=== PATIENT | male | born 1945 | race Caucasian/White ===

== ENCOUNTER 2017-12-29 21:48 | Observation (INO) ==
--- NOTE | 2017-12-29 23:46 | Emergency Department Note ---
Disposition Clinical Impression: Vertigo, Hyperglycemia, Elevated lactic acid level Disposition: Admitted As Inpatient Condition: Fair Time of Disposition: 03:32 Dizziness HPI - General Chief Complaint: ED General Medical Stated Complaint: high blood sugar Time Seen by Provider: 12/29/17 23:00 Source: patient (;11) Limitations: no limitations Nursing Notes Reviewed: Yes Vital Signs Reviewed: Yes - History of Present Illness HPI Narrative: Patient reports that he has had a previous cerebellar CVA and although this was 7 years ago he gets vertigo from it frequently and is treated. He reports that he has had extra spinning in the last 4 days. Oftentimes happening with position change especially lying down in bed. He reports that he had not checked his blood sugar in several days and checked it at 8 PM and it was 439. He reports past medical history of hypertension and he is on clopidogrel but he has never had high cholesterol or an IA. He denies any headache or new injuries. He reports no vision changes or weakness. He denies any arm or leg or focal symptoms. No speech deficits. No falls. Denies chest pain, palpitations, shortness of breath, nausea, vomiting. Pt Subjective Complaint: dizziness, lightheadedness, difficulty walking ( Frequently ataxic since CVA 7 years ago) Onset (ago): day(s) Timing: gradual onset, waxing/waning Description: sense of movement, "room spinning", off-balance History of similar episodes: Yes History of trauma: No Severity: moderate Improves with: remaining still - Related Data Home Medications Medication Instructions Recorded Confirmed Atenolol 100 mg PO DAILY 12/29/17 12/29/17 Clopidogrel [Plavix] 75 mg PO DAILY 12/29/17 12/29/17 Enalapril Maleate [Vasotec] 20 mg PO BID 12/29/17 12/29/17 Finasteride [Proscar] 5 mg PO DAILY 12/29/17 12/29/17 Metformin HCl [Metformin HCl ER] 1,000 mg PO BID 12/29/17 12/29/17 Ondansetron HCl [Zofran] 4 mg PO BID PRN 12/29/17 12/29/17 Simvastatin [Zocor] 20 mg PO HS 12/29/17 12/29/17 Terazosin [Hytrin] 5 mg PO DAILY 12/29/17 12/29/17 glipiZIDE [Glipizide] 10 mg PO BID 12/29/17 12/29/17 Allergies Allergy/AdvReac Type Severity Reaction Status Date / Time No Known Allergies Allergy Verified 12/30/17 07:00 All systems ED: reviewed and negative except as stated. Review of Systems: As Per HPI Past Medical History - Past Medical History Medical history: Reports: CVA, kidney stones - Social History Smoking Status: Never smoker Alcohol use: Reports: none Drug use: Reports: none Physical Exam Constitutional: Patient is oriented to person, place, and time. Skin color is pink. Appears well hydrated, body habitus normal . Non toxic appearing. Head: Normocephalic and atraumatic. External ear exam normal Nose: Nose normal. Mouth/Throat: Uvula is midline, oropharynx is clear and moist and mucous membranes are normal. Eyes: Conjunctivae nl, extraocular motions and lids are normal. Pupils are equal , round, and reactive to light. Neck: Normal range of motion and phonation normal. Neck supple. Cardiovascular: Normal rate, regular rhythm, normal heart sounds. Pulmonary/Chest: No Respiratory distress. Respiratory Effort normal and breath sounds clear. Abdominal: Soft. Normal appearance and bowel sounds are normal. no tenderness, no masses, no guarding, no rebound Musculoskeletal: Good distal pulses. Soft compartments. Brisk cap refill. Extremities: Normal range of motion.Intact peripheral pulses. 1+ Edema. Extremity skin color nl, no calf tenderness or palpable cords. Neurological: GCS 15. Speech clear and articulate. No nystagmus. Normal [id number] testing. Normal visual confrontational testing. No focal weakness. Patient is alert and oriented without evidence of obvious motor deficits Skin: Skin is warm, dry and intact. color is normal, cap refill is quick Psychiatric: Patient has normal mood and affect. Patient speech is normal and behavior is normal. Thought content normal. - General Limitations: no limitations General appearance: alert, in no apparent distress Course - Reevaluation(s) Reevaluation #1: Patient reevaluated. He has had several repeat vital signs and temp persists. Lactate was elevated. IV fluids given and now will be bolused. Repeat lactate ordered. Hyperglycemia noted. Chest x-ray and CT both negative. No source of fever. Urinalysis unremarkable. Patient does not appear septic or toxic. Vital signs have been stable and he has no headache or neck stiffness. There is no clear etiology for the fever. Blood cultures pending. Plan is to repeat lactate after IV rehydration and if lactic is remains elevated or increases patient will require hospitalization. If lactic is improving patient appears so well that he may be a candidate for outpatient management and repeat levels and outpatient Time: 02:34 Reevaluation #2: Patient continues restful and his temperature has improved slightly. But his lactic acid is increased and he will require hospitalization. Chest x-ray called negative but may represent infiltrate right lung base. Initial dose of Rocephin was administered. Call out to Dr. Jha his PMD Time: 03:28 Reevaluation #3: disc case w/ dr Jha who agrees w/ admission and he asked if I would put in orders as a courtesy for observation due to fever and elevated lactate. Time: 03:35 Vital Signs Temperature 100 F H 12/29/17 23:23 Pulse Rate 79 12/29/17 23:23 Respiratory Rate 18 12/29/17 23:23 Blood Pressure 156/86 12/29/17 23:23 O2 Sat by Pulse Oximetry 95 12/29/17 23:23 Temperature 97.8 F 12/30/17 06:47 Pulse Rate 68 12/30/17 06:47 Respiratory Rate 14 12/30/17 06:47 Blood Pressure 154/85 12/30/17 06:47 O2 Sat by Pulse Oximetry 98 12/30/17 06:47 Oxygen Delivery Oxygen Delivery Room Air Dizziness - MDM Narrative Medical decision making narrative: Patient is febrile with increasing vertigo in a patient who has had a cerebellar CVA and chronic vertigo. Concern regarding possible new source of infection. Workup ensued. - Differential Diagnosis Likely: benign paroxysmal positional vertigo, cerebrovascular accident, other occult medical condition - Medical Records Medical records reviewed: Yes I reviewed the patient's medical records. - Lab Data Lab results reviewed: Yes I reviewed the patient's lab results. Result diagrams: 12/29/17 00:11 12/29/17 00:11 Lab Results 12/29/17 12/29/17 12/29/17 Range/Units 00:11 00:11 00:11 WBC 5.9 (4.3-11.1) K/mcL RBC 4.88 (4.19-5.50) M/mcL Hgb 15.5 (12.9-16.9) g/dL Hct 45.5 (37.5-50.1) % MCV 93.2 (83.0-100.0) fL MCH 31.8 (28.0-33.3) pg MCHC 34.1 (31.6-35.5) g/dL RDW 12.5 (11.5-14.5) % Plt Count 155 (140-400) K/mcL MPV 10.7 (9.4-12.4) fL Immature Gran % 0.3 (0-4) % Seg Neutrophils % 54.8 % Lymphocytes % 30.2 % Monocytes % 13.0 % Eosinophils % 1.4 % Basophils % 0.3 % Neutrophils # 3.2 (1.6-8.9) K/mcL Lymphocytes # 1.8 (0.6-4.6) K/mcL Monocytes # 0.8 (0.0-1.3) K/mcL Eosinophils # 0.1 (0.0-0.6) K/mcL Basophils # 0.0 (0.0-0.2) K/mcL Sodium 137 (136-145) mEq/L Potassium 4.3 (3.5-5.1) mEq/L Chloride 100 (98-107) mEq/L Carbon Dioxide 25 (23-29) mEq/L BUN 11 (8-23) mg/dL Creatinine 0.83 (0.70-1.30) mg/dL Est GFR ( Amer) > 60 (> 60) Est GFR (Non-Af Amer) > 60 (> 60) BUN/Creatinine Ratio 13 (6-26) Glucose 283 H (70-105) mg/dL POC Glucose (70-99) mg/dL Calculated Osmolality 294 (280-300) Lactic Acid 2.6 H (0.5-2.2) mmol/L Calcium 9.8 (8.6-10.3) mg/dL Total Bilirubin 0.7 (0.3-1.0) mg/dL AST 16 (13-39) Units/L ALT 17 (7-52) Units/L Alkaline Phosphatase 69 (34-104) Units/L Serum Total Protein 7.7 (6.4-8.9) g/dL Albumin 4.6 (3.5-5.7) g/dL Globulin 3.1 (2.4-3.5) g/dL Albumin/Globulin Ratio 1.5 (1.1-2.2) Urine Color (Yellow) Urine Clarity (Clear) Urine pH (5.0-8.0) pH Units Ur Specific [place] (1.010-1.025) Urine Protein (Neg-Trace) mg/dL Urine Glucose (UA) (Normal) mg/dL Urine Ketones (Negative) mg/dL Urine Blood (Negative) Urine Nitrite (Negative) Urine Bilirubin (Negative) Urine Urobilinogen (Normal) mg/dL Ur Leukocyte Esterase (Negative) Ur Culture Indicated? (NO) 12/29/17 12/29/17 12/30/17 Range/Units 23:11 23:30 03:06 WBC (4.3-11.1) K/mcL RBC (4.19-5.50) M/mcL Hgb (12.9-16.9) g/dL Hct (37.5-50.1) % MCV (83.0-100.0) fL MCH (28.0-33.3) pg MCHC (31.6-35.5) g/dL RDW (11.5-14.5) % Plt Count (140-400) K/mcL MPV (9.4-12.4) fL Immature Gran % (0-4) % Seg Neutrophils % % Lymphocytes % % Monocytes % % Eosinophils % % Basophils % % Neutrophils # (1.6-8.9) K/mcL Lymphocytes # (0.6-4.6) K/mcL Monocytes # (0.0-1.3) K/mcL Eosinophils # (0.0-0.6) K/mcL Basophils # (0.0-0.2) K/mcL Sodium (136-145) mEq/L Potassium (3.5-5.1) mEq/L Chloride (98-107) mEq/L Carbon Dioxide (23-29) mEq/L BUN (8-23) mg/dL Creatinine (0.70-1.30) mg/dL Est GFR ( Amer) (> 60) Est GFR (Non-Af Amer) (> 60) BUN/Creatinine Ratio (6-26) Glucose (70-105) mg/dL POC Glucose 260 H (70-99) mg/dL Calculated Osmolality (280-300) Lactic Acid 2.7 H (0.5-2.2) mmol/L Calcium (8.6-10.3) mg/dL Total Bilirubin (0.3-1.0) mg/dL AST (13-39) Units/L ALT (7-52) Units/L Alkaline Phosphatase (34-104) Units/L Serum Total Protein (6.4-8.9) g/dL Albumin (3.5-5.7) g/dL Globulin (2.4-3.5) g/dL Albumin/Globulin Ratio (1.1-2.2) Urine Color Yellow (Yellow) Urine Clarity Clear (Clear) Urine pH 6.5 (5.0-8.0) pH Units Ur Specific [place] 1.010 (1.010-1.025) Urine Protein Negative (Neg-Trace) mg/dL Urine Glucose (UA) 500 H (Normal) mg/dL Urine Ketones Negative (Negative) mg/dL Urine Blood Negative (Negative) Urine Nitrite Negative (Negative) Urine Bilirubin Negative (Negative) Urine Urobilinogen Normal (Normal) mg/dL Ur Leukocyte Esterase Negative (Negative) Ur Culture Indicated? NO (NO) - Radiology Data Radiology results reviewed: Yes I reviewed the patient's radiology results. Portable chest x-ray report from radiology negative portable chest x-ray. CT scan brain no contrast. Report from radiology "nothing acute"
[2017-12-29] MEDS ORDERED: cefTRIAXone 1,000 MG in Water for inj. (sterile) 20 ML 10 ML IVP ONE (23:48)
[2017-12-30 00:19] LABS: Basophils % 0.3 %; Eosinophils # 0.1 K/mcL (0.0-0.6); Eosinophils % 1.4 %; Hematocrit 45.5 % (37.5-50.1); Hemoglobin 15.5 g/dL (12.9-16.9); Immature Granulocytes % 0.3 % (0-4); Lymphocytes # 1.8 K/mcL (0.6-4.6); Lymphocytes % 30.2 %; Mean Corpuscular HGB Conc 34.1 g/dL (31.6-35.5); Mean Corpuscular Hemoglobin 31.8 pg (28.0-33.3); Mean Corpuscular Volume 93.2 fL (83.0-100.0); Mean Platelet Volume 10.7 fL (9.4-12.4); Monocytes # 0.8 K/mcL (0.0-1.3); Neutrophils # 3.2 K/mcL (1.6-8.9); Platelet Count 155 K/mcL (140-400); Red Blood Count 4.88 M/mcL (4.19-5.50); Red Cell Distribution Width 12.5 % (11.5-14.5); Segmented Neutrophils % 54.8 %
[2017-12-30 00:21] LABS: Bilirubin,Urine Negative (Negative); Blood,Urine Negative (Negative); Clarity,Urine Clear (Clear); Color,Urine Yellow (Yellow); Glucose,Urine (UA) 500 mg/dL (Normal); Ketones,Urine Negative (Negative); Leukocyte Esterase,Urine Negative (Negative); Nitrite,Urine Negative (Negative); PH,Urine 6.5 pH Units (5.0-8.0); Protein,Urine Negative (Neg-Trace); Urobilinogen,Urine Normal (Normal)
[2017-12-30 00:47] LABS: Alanine Aminotransferase 17 Units/L (7-52); Albumin 4.6 g/dL (3.5-5.7); Albumin/Globulin Ratio 1.5 (1.1-2.2); Alkaline Phosphatase 69 Units/L (34-104); Aspartate Amino Transferase 16 Units/L (13-39); Bilirubin,Total 0.7 mg/dL (0.3-1.0); Blood Urea Nitrogen 11 mg/dL (8-23); Calcium 9.8 mg/dL (8.6-10.3); Chloride 100 mEq/L (98-107); Globulin 3.1 g/dL (2.4-3.5); Glucose 283 mg/dL (70-105); Osmolality,Calculated 294 (280-300); Potassium 4.3 mEq/L (3.5-5.1); Sodium 137 mEq/L (136-145); Total Protein 7.7 g/dL (6.4-8.9)
[2017-12-30] MEDS: 0.9 % Sodium Chloride 1,000 ML IVC SCH ×4 (00:57→15:58)
[2017-12-30 01:48] LABS: BUN/Creatinine Ratio 13 (6-26); Carbon Dioxide 25 mEq/L (23-29); eGFR For African Americans > 60 (> 60); eGFR For Non-African Americans > 60 (> 60)
[2017-12-30] MEDS ORDERED: 0.9 % Sodium Chloride 1,000 ML IVC SCH ×4 (03:45→05:56)
[2017-12-30] MEDS ORDERED: Dextrose Gel 15 GM/37.5 ML TUBE PO PRN ×2 (05:56)
[2017-12-30] MEDS ORDERED: Ondansetron ODT 4 MG TAB.RAPDIS PO PRN (05:56)
[2017-12-30] MEDS ORDERED: *HR* Dextrose 50 % in Water (Syg) 50 ML SYRINGE IVP PRN (05:56)
[2017-12-30] MEDS ORDERED: Naloxone 0.4 MG/ML INJ IVP PRN (05:56)
[2017-12-30] MEDS ORDERED: D5% in Water 1,000 ML IVC PRN (05:56)
--- NOTE | 2017-12-30 06:58 | Internal Med History&Physical ---
Date of Encounter: 12/30/17 Time of Encounter: 06:57 Assessment and Plan (1) Vertigo Current visit: Yes Status: Acute Patient has acute vertiginous symptoms, severe for the past 3 or 4 days. Not sure what triggered it. Negative CT for acute changes. History of previous cerebellar CVA and chronic "dizziness" to a lesser degree. I do not see anything that is advancing or aggressive. Continue to follow clinically. (2) Diabetes mellitus out of control Current visit: Yes Status: Acute Sugars are elevated. Not sure if this contributed to his symptoms or not. We will admit to observation and follow the blood sugars. Qualifiers: Diabetes mellitus type: type 2 Diabetes mellitus senior care insulin use: without intermediate card tender use Diabetes mellitus complication status: with hyperglycemia Qualified Code(s): E11.65 - Type 2 diabetes mellitus with hyperglycemia (3) Elevated lactic acid level Current visit: Yes Status: Acute Mildly elevated lactate level. He is showing no signs of hypoxemia, hypoperfusion, severe infection, etc. He may have Type B lactic acidosis. We will continue to monitor. He has had IV fluids. (4) Hypertension Current visit: Yes Status: Acute Hypertension under good control. Stay on the same medication. Qualifiers: Hypertension type: essential hypertension Qualified Code(s): I10 - Essential (primary) hypertension Internal Medicine - H&P: HPI Chief complaint: I got so dizzy Admitted From: Emergency Dept Plans for Post Hospital Care: Home History of present illness: Mr. Chong is a 72 year old male with known history of right cerebellar infarct in the remote past and has a history of "dizziness" on and off since then came to the emergency room after 4 days of severe dizziness. He was mowing the yard on Friday with a riding mower. Since then his dizziness had worsened. He did not think he was overheated or had other symptoms. however, he came to the emergency room. There he was evaluated and was found to have an elevated lactate. However he had no elevated white blood cell count, no hypoxemia, no infectious symptoms, etc. His CT scan showed the old cerebellar CVA but no acute changes. Chest film was read as no infiltrate. His urine was negative. Evaluated in the morning, he said that he felt fine other than a scratchy throat. He was lying in bed at 45 degree angle and said that he could not lie flat nor in the dark because the dizziness worsened. He denied any cardiac type chest pain, palpitations, dyspnea, GI or symptoms. Because of the mildly elevated lactate the ER physician felt the patient needed to be admitted to observation bed. Past Med Surg Social Fam HX - Past Medical History Medical history: arthritis, CVA (Right cerebellar CVA and remote past), DVT ( Had DVT when hospitalized with pneumonia), diabetes, hypertension, kidney stones Additional medical history: Left Leg DVT - Past Surgical History Surgical History: other Additional surgical history: Matt Carpal Tunnel, Matt Heel Spurs, lithotripsy - Social History Smoking Status: Former smoker Alcohol use: rarely Drug use: none - Family History Father Living Status: Hx Family Cardiac Disorders: Yes Hx Family Neurologic Disorders: Yes Mother Living Status: Hx Family Cardiac Disorders: Yes Hx Family Cancer: Yes Internal Medicine - H&P: Meds RX: Atenolol 100 mg PO DAILY 12/29/17 [History] RX: Clopidogrel [Plavix] 75 mg PO DAILY 12/29/17 [History] RX: Enalapril Maleate [Vasotec] 20 mg PO BID 12/29/17 [History] RX: Finasteride [Proscar] 5 mg PO DAILY 12/29/17 [History] RX: Metformin HCl [Metformin HCl ER] 1,000 mg PO BID 12/29/17 [History] RX: Ondansetron HCl [Zofran] 4 mg PO BID PRN 12/29/17 [History] RX: Simvastatin [Zocor] 20 mg PO HS 12/29/17 [History] RX: Terazosin [Hytrin] 5 mg PO DAILY 12/29/17 [History] RX: glipiZIDE [Glipizide] 10 mg PO BID 12/29/17 [History] 3 Allergy/AdvReac Type Severity Reaction Status Date / Time No Known Allergies Allergy Verified 12/30/17 07:00 - Constitutional Constitutional: anorexia (Has not eaten well for the past few weeks, but has not lost any weight. He likes his sweets according to his .), fever(s) ( Had a fever 100.0 as reported to me by the ER physician), no night sweats - EENT Eyes: blurry vision (His visit was blurry in the ER, better now.), no diplopia Nose, mouth and throat: no dry mouth, no neck mass, no neck pain - Cardiovascular Cardiovascular ROS IM: no chest pain, no claudication, no diaphoresis, no dyspnea, no dyspnea on exertion, no palpitations, no syncope - Respiratory Respiratory: no cough, no dyspnea, no hemoptysis, no chest congestion - Gastrointestinal Gastrointestinal: no change in bowel habits, no constipation, no diarrhea - Genitourinary Genitourinary ROS male: no dysuria - Musculoskeletal Musculoskeletal ROS IM: muscle weakness (He states his legs feel weak and unsteady whenever he has his dizziness.) - Neurological Neurological ROS: as per HPI, dizziness (He states the room was spinning. Worse when his eyes are closed. No unilateral focal deficit. He is better now. Cannot lie supine though.) - Psychiatric Psychiatric: no confusion, no depression - Constitutional Vitals: Temp Pulse Resp BP Pulse Ox 97.8 F 68 14 154/85 98 12/30/17 06:47 12/30/17 06:47 12/30/17 06:47 12/30/17 06:47 12/30/17 06:47 General appearance: Present: A&O X 3, no acute distress, answers questions appropriately - Head Head exam: Present: atraumatic, normal inspection - Eye Eye exam: Present: EOMI, PERRL. Absent: nystagmus, scleral icterus Pupils: Present: PERRL - ENT ENT exam: Present: mucous membranes moist, normal oropharynx, TM's normal bilaterally - Neck Neck exam general surgery: Absent: lymphadenopathy, thyromegaly - Respiratory Respiratory exam: Present: CTAB - Cardiovascular Cardiovascular exam: Present: RRR, +S1, +S2. Absent: systolic murmur - GI/Abdominal GI/Abdominal exam: Present: soft. Absent: tenderness - Extremities Exam Extremities exam: Present: warm. Absent: calf tenderness, pedal edema - Neurological Exam Neurological exam: Present: abnormal gait (He was too dizzy to evaluate and standing position), alert, CN II-XII intact, oriented X3, strengths equal and symetr throughout. Absent: facial droop, speech deficit - Psychiatric Psychiatric exam: Present: normal affect, normal mood Internal Med - H&P Results - Labs CBC & Chem 7: 12/29/17 00:11 12/29/17 00:11 Labs: Labs have been evaluated. Mildly elevated lactate at 2.6. - Diagnostic Studies Chest x-ray Additional comments: Was read as no acute infiltrate. CT scan - head Additional comments: Was read as old cerebellar infarct on the right side. No acute changes.
[2017-12-30] MEDS ORDERED: *HR* Enoxaparin 40 MG/0.4 ML SYRINGE SQ SCH (07:00)
[2017-12-30] MEDS: *HR* Metformin 500 MG TABLET PO SCH ×2 (08:31→15:59)
[2017-12-30] MEDS ORDERED: *HR* GlipiZIDE 5 MG TABLET PO SCH (09:00)
[2017-12-30] MEDS ORDERED: METFORMIN HCL 1000 MG PO SCH (09:00)
[2017-12-30] MEDS ORDERED: Lisinopril 20 MG TABLET PO SCH (09:00)
[2017-12-30] MEDS ORDERED: Finasteride 5 MG TABLET PO SCH (09:00)
[2017-12-30 11:34] VITALS: BP 135/76
--- NOTE | 2017-12-30 18:10 | Discharge Summary ---
Date of Encounter: 12/30/17 Time of Encounter: 18:08 - Discharge Diagnosis (1) Vertigo Priority: Primary Status: Acute Comments: Patient was admitted with worsening case of vertigo for the past few days. No obvious trigger. He has a history chronic vertiginous symptoms following right cerebellar CVA years ago. His urban confirms that he frequently has dizziness, frequent has to lay on the couch at night and keep the light on to avoid excessive dizziness. He is markedly improved. He is able to sit at the edge of the bed. I walked him down the hallway with very minimal occasional imbalance symptoms easily recovered. He uses a cane chronically. He feels like it is safe to go home urban. His thinks he is basically back to his usual normal. I do not think he needs any further workup. No new focal signs. He will follow-up in the office later this week. (2) Diabetes mellitus out of control Priority: Secondary Status: Acute Comments: On admission his blood sugar was 284. He admits his sugars up and out of control the past few days. He has been compliant with his medications, but he was told in the past and he needs more medication to get it under better control. Before eating supper urban's blood sugar was 140s. His vision is improved. He has had decreased by mouth intake the past few weeks but has not lost any weight. His states that he likes his sweets. He has order for glycohemoglobin and follow-up in the office planned for his diabetes. Qualifiers: Diabetes mellitus type: type 2 Diabetes mellitus care home insulin use: without care home use Diabetes mellitus complication status: with hyperglycemia Qualified Code(s): E11.65 - Type 2 diabetes mellitus with hyperglycemia (3) Elevated lactic acid level Priority: Secondary Status: Acute Comments: Isolated elevated lactic acid level in the ER. Went up to 2.9. He is having no signs of infection, hypoperfusion, hypotension, leukocytosis or any septicemia-type signs or symptoms. I suspect he may have Type B elevated lactate. We can follow as an outpatient. I do not believe he needs to stay in the hospital at this time. I will see him in the office in a few days. (4) Hypertension Priority: Secondary Status: Acute Comments: Has a history of hypertension. Blood pressure is staying under adequate control. Continue same medications. Qualifiers: Hypertension type: essential hypertension Qualified Code(s): I10 - Essential (primary) hypertension Hospital course: Mr. Chong is a 72 year old male admitted with vertiginous symptoms, previous CVA and has isolated elevated lactate level. Please see the diagnoses above. Patient markedly improved and can be discharged tonight. Discharge discussed with: patient, family - Time Spent with Patient Total time spent providing and/or coordinating discharge services: - Discharge Medications Home Medications: RX: Atenolol 100 mg PO DAILY 12/29/17 [History] RX: Clopidogrel [Plavix] 75 mg PO DAILY 12/29/17 [History] RX: Enalapril Maleate [Vasotec] 20 mg PO BID 12/29/17 [History] RX: Finasteride [Proscar] 5 mg PO DAILY 12/29/17 [History] RX: Metformin HCl [Metformin HCl ER] 1,000 mg PO BID 12/29/17 [History] RX: Ondansetron HCl [Zofran] 4 mg PO BID PRN 12/29/17 [History] RX: Simvastatin [Zocor] 20 mg PO HS 12/29/17 [History] RX: Terazosin [Hytrin] 5 mg PO DAILY 12/29/17 [History] RX: glipiZIDE [Glipizide] 10 mg PO BID 12/29/17 [History] Allergies/Adverse Reactions: 3 Allergy/AdvReac Type Severity Reaction Status Date / Time No Known Allergies Allergy Verified 12/30/17 07:00 Date of admission: 12/30/17 05:38 Primary care physician: Keyana Sanchez CNP Discharging clinician: Kalyan Jha Anticipated date of discharge: 12/30/17 - Constitutional Vitals: Temp Pulse Resp BP Pulse Ox 97.9 F 70 18 135/76 95 12/30/17 11:33 12/30/17 11:33 12/30/17 11:33 12/30/17 11:33 12/30/17 11:33 General appearance: Present: A&O X 3, no acute distress, answers questions appropriately - ENT ENT exam: Present: normal oropharynx, TM's normal bilaterally - Neck Additional comments: No carotid bruits. No masses. No meningeal signs - Respiratory Respiratory exam: Present: CTAB - Cardiovascular Cardiovascular exam: Present: RRR, +S1, +S2. Absent: systolic murmur - Extremities Exam Extremities exam: Present: pedal edema (Scant amount of edema at the sock line.) - Neurological Exam Neurological exam: Present: CN II-XII intact, oriented X3, no focal deficits, strengths equal and symetr throughout Additional comments: I ambulated him in the hallway. 2 times he had an unsteady sensation. He is using his cane. His thinks he is basically back to his baseline. - Patient Status Disposition: Home, Self-Care Condition: Fair Functional capacity at discharge: uses cane/walker Overall status at discharge: patient is progressing back to baseline - Discharge Instructions Follow Up With: Kalyan Jha MD [Partnered Physician] - 01/02/18 4:15 pm - Diet and Activity Activity: increase activity as tolerated Diet: diabetic diet
== END 2017-12-30 18:59 | disposition home or self-care (01) ==
LOC: INPGRE 21:48 → EMEROOGRE 21:48 → INPGRE 12-30 06:00
PROVIDERS: ADMIT Family Medicine; ATTEND Family Medicine